=== PATIENT | male | born 1980 | race Two or more races ===

== ENCOUNTER 2024-10-05 06:00 | Day surgery (SDC) | payer MEDICAID, SELFPAY ==
--- NOTE | 2024-10-04 11:05 | EKG_ITS ---
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
[2024-10-04 11:13] VITALS: BMI 26.2
[2024-10-04 12:26] LABS: Basophils # (Auto) 0.1 Thou/mm3 (0.0-0.2); Basophils % (Auto) 1 % (0-2.5); Eosinophils # (Auto) 0.8 Thou/mm3 (0.0-0.5); Eosinophils % (Auto) 7 % (0-10); Hematocrit 49.8 % (41.0-53.0); Hemoglobin 17.3 g/dL (13.5-16.0); Immature Granulocytes % (Auto) 0 % (0-0); Immature Granulocytes Auto 0.02 Thou/mm3 (0.00-0.00); Lymphocytes # (Auto) 3.5 Thou/mm3 (1.0-4.8); Lymphocytes % (Auto) 28 % (10-50); Mean Corpuscular HGB Conc 34.7 g/dl (31.0-37.0); Mean Corpuscular Hemoglobin 30.4 pg (25.0-35.0); Mean Corpuscular Volume 88 fL (80-100); Monocytes # (Auto) 0.6 Thou/mm3 (0.0-0.8); Monocytes % (Auto) 5 % (0-12); Neutrophils # (Auto) 7.2 Thou/mm3 (1.8-7.7); Neutrophils % (Auto) 59 % (37-80); Nucleated Red Blood Cell % 0 /100 WBC (0); Platelet Count 323 Thou/mm3 (140-440); RDW Standard Deviation 38.1 fL (35.1-43.9); Red Blood Count 5.69 Miln/mm3 (4.50-5.90); White Blood Count 12.3 Thou/mm3 (3.8-10.6)
[2024-10-04 12:36] LABS: Alanine Aminotransferase 17 U/L (10-49); Albumin, Serum 4.9 gm/dL (3.5-5.0); Albumin/Globulin Ratio 1.5 (1.2-2.2); Alkaline Phosphatase 120 U/L (46-116); Anion Gap 9 (7-16); Aspartate Amino Transferase 16 U/L (0-34); BUN/Creatinine Ratio 16 Ratio (12-20); Bilirubin,Total 0.6 mg/dL (0.3-1.2); Blood Urea Nitrogen 16 mg/dL (9-23); Calcium 10.1 mg/dL (8.3-10.6); Calcium (Corrected) 10.1 mg/dL (8.5-10.1); Carbon Dioxide 28.8 mMol/L (20.0-31.0); Chloride 104 mMol/L (98-107); Estimated Creatinine Clearance 88.1 mL/min (>60); Globulin 3.2 gm/dL (2.3-3.5); Glucose 121 mg/dL (74-106); Osmolality,Calculated 285 (275-295); Potassium 4.5 mMol/L (3.4-5.1); Sodium 142 mMol/L (136-145); Total Protein 8.1 gm/dL (5.7-8.2); eGFR > 60 See Note
--- NOTE | 2024-10-04 13:43 | ESHP_ITS ---
RE: RAQUEL HUGHES : 1980 DATE OF ADMISSION: 10/04/2024 HISTORY OF PRESENT ILLNESS: The patient presented to me earlier today with a history of pain in the right shoulder. Pain radiates towards the neck as well as towards the arm. The patient is unable to sleep. Quality of life is affected. The patient graded intensity of pain to be 8 to 9/10. MRI scan was obtained earlier, which revealed torn rotator cuff. Conservative treatment did not help him. PAST MEDICAL HISTORY: The patient has a history of diabetes mellitus and high blood pressure. No history of asthma, seizure, chest pain, myocardial infarction, or bleeding disorder. PAST SURGICAL HISTORY: Nil. DRUG HISTORY: The patient is on 1. Atorvastatin. 2. Metformin. 3. Ozempic. 4. Ibuprofen. ALLERGIES: NIL KNOWN. FAMILY HISTORY AND SOCIAL HISTORY: The patient admits to smoking and social drinking. The patient is not working. PHYSICAL EXAMINATION: GENERAL: Normal-built person. VITAL SIGNS: Pulse 88 per minute. Blood pressure is 130/76. NECK: Soft, supple. No mass felt. Trachea is centrally placed. CARDIOVASCULAR SYSTEM: First and second heart sounds normal. No murmur heard. RESPIRATORY SYSTEM: Bilateral vesicular breath sounds. CHEST: Clear. ABDOMEN: Soft. No mass felt. Bowel sounds present. EXTREMITIES: Right shoulder examination revealed no wasting. There is 2+ tenderness at AC joint. Active range of motion is 0 to 80 degrees of abduction and 0 to 90 degrees of forward flexion. Internal rotation is severely restricted. The patient also has weak fist and journeyman pipe fitter. DIAGNOSTIC DATA: MRI scan of the right shoulder revealed a torn rotator cuff with DJD of the AC joint. ASSESSMENT AND PLAN: Since the patient is symptomatic, therefore, right rotator cuff repair with Alex procedure was discussed and advised. Risk with anesthesia was explained and that includes, but not limited to reaction to anesthetic agents, cardiac arrest and rarely, it might be fatal. Risks with operation includes infection and if that happens, the patient may need further surgical procedure. Other risks include delayed healing, wound dehiscence, etc. There is a risk of recurrence of the tear. No guarantee is given regarding outcome of the procedure and/or relief of symptoms. Sometimes, rare complication happens and if that happens, that has to be taken care of. The patient was sent to his primary care physician and has been cleared for surgical procedure. The patient's HB A1c is 7.5. DT: 12:44:36 TT: 13:42:00 Ref: [id number] - TID: [id number]
[2024-10-04 14:08] LABS: Partial Thromboplastin Time 28.2 Seconds (22.0-36.0); Prothrombin Time 11.4 Seconds (9.0-12.2)
--- NOTE | 2024-10-04 14:12 | SUR.PREOP ---
WBC 12.3 Dr Mittal notiried and Ok to proceed with surgery.
[2024-10-05] VITALS (7 sets, daily range): BP systolic 122–134; BP diastolic 82–99; PULSE 80–96; RESP 10–17; TEMP 36.3–36.8; O2SAT 97–100; BMI 26.2
[2024-10-05] MEDS: RINGERS LACTATED 1000 ML 1,000 ML 20 ML IV (07:04)
--- NOTE | 2024-10-05 07:33 | SUR.PREOP ---
Patient expressed gratitude for prayer before their procedure.
--- NOTE | 2024-10-05 09:33 | PD.SUROPNT ---
Date of Procedure 10/05/24 Pre Op Diagnosis 1. Right rotator cuff tear 2. Right shoulder impingement syndrome Post Op Diagnosis Same Procedure 1. Excision lateral end of the clavicle 2. Excision coracoacromial ligament 3 acromioplasty 4. Repair of rotator cuff 5. Manipulation under anesthesia Findings Refer dictation Procedure Description The patient was given general endotracheal anesthesia. The right shoulder block was given as well. Once satisfactory anesthesia was achieved patient was put in about 45?? sitting position with sandbag underneath the right shoulder blade. The part was thoroughly prepped and draped. A skin incision was made at the AC joint extending proximally towards the neck for a half inches and distally towards the arm for about couple of inches. Deeper dissection was carried out. Bleeding vessels were electrocoagulated as and when encountered. The soft tissue was reflected. Following that AC joint was exposed and AC joint was exposed. The deltoid muscle was reflected from the anterior and lateral aspect of the acromial process. There was about 12 mm wide osteophytes on the anterior aspect of the acromial process. There was a small osteophyte on the lateral aspect as well. The anterior 2 mm osteophytes with another millimeters of the acromial process was excised with the help of saw. The lateral 2 mm of the acromial process including osteophyte was also removed. Following that a periosteal elevator was placed underneath the lateral end of the clavicle and lateral 3-4 mm was excised. The coracoacromial ligament was removed. With the help of curved osteotome the undersurface of the Acromial processes was chiseled out. That made more room between the superior surface of the head of the humerus and undersurface of the acromial process. Following that the rotator cuff was inspected. It revealed big oval tear, however most of the fibers were attached to the greater tuberosity. Wound was irrigated with antibiotic solution every 4-5 minutes. The left shoulder was manipulated at this time. Full range of abduction and forward flexion was achieved. The rotator cuff tear was repaired with 2-0 Vicryl. 2 drill holes were made on the acromial process and deltoid muscle was stitched back to it. Some reinforcement sutures were placed. The subcutaneous tissue was then closed with the help of 2-0 Vicryl and 3-0 Vicryl in layers. The skin was closed with ehsan. After cleaning the wound with hydrogel proximal solution and sterile dressing was applied. Patient was taken to the recovery room in good condition. Estimated blood loss 10 mL. Prognosis in this case is good. Anesthesia GETA and other Pathology / specimen None Estimated Blood Loss 10 Surgeon Jeffry Russo MD Surgical Staff Operation Date: 10/05/24 08:45 Case Staff Anesthesiologist: Darci Jackson RN First Assistant: Silvia Gillette
--- NOTE | 2024-10-05 09:42 | SUR.PHASEI ---
0942: Pt. AAOx4, vitals stable, breathing unlabored, no complaint of pain or nausea, dressing to right shoulder CDI, no active bleed noted, cap refill to bilateral hands less than 3 seconds, bilateral radial pulses strong and regular, report received from Danna MORALES and Elba WEBB.
--- NOTE | 2024-10-05 10:40 | SUR.PHASEII ---
1040: Pt. AAOx4, vitals stable, breathing unlabored, no complaint of pain or nausea, dressing to right shoulder CDI, no active bleed noted, cap refill to bilateral hands less than 3 seconds, bilateral radial pulses strong and regular, pt. able to wiggle bilateral fingers, pt. tolerated sips of water well, pt. ambulated to wheelchair with steady gait and no assist, no complications. Gave discharge instructions to the pt. and his ride, both verbalized understanding and had no further questions. Pt. left with all personal belongings.
== END 2024-10-05 10:40 | disposition home or self-care (01) ==
PROVIDERS: Anesthesiology; PCP Nurse Practitioner Family; Referring Provider Orthopaedic Surgery; Visit Provider Orthopaedic Surgery
PROC: (CPT 23412; principal; 2024-10-05 08:30)
DX: M75.101 Unspecified rotator cuff tear or rupture of right shoulder, not specified as traumatic (principal); M75.41 Impingement syndrome of right shoulder; E11.9 Type 2 diabetes mellitus without complications; I10 Essential (primary) hypertension; Z01.810 Encounter for preprocedural cardiovascular examination
CPT/HCPCS: 23412; 36415; 80048; 80053; 85025; 85610; 85730; 93005; A4217; A4649; J1100; J1580; J1885; J2250; J2405; J2704; J2795; J3010; J3490; J7040; J7120